=== PATIENT | male | born 1945 | race Caucasian/White ===

== ENCOUNTER 2018-08-22 18:52 | Emergency (ER) | payer MEDICARE, OTHER, SELFPAY ==
[2018-08-22 18:59] VITALS: BP 109/75; PULSE 58; RESP 22; TEMP 37.4; O2SAT 100
--- NOTE | 2018-08-22 19:05 | DI.RAD.S_ITS ---
PROCEDURE: XR CHEST 2V INDICATIONS: dry cough, short of breath TECHNIQUE: 2 views of the chest were acquired. COMPARISON: None. FINDINGS: Surgical changes and devices: None. Lungs and pleura: Lungs are clear. No pleural effusions or pneumothorax. Mediastinum: Mediastinal contours are normal. Heart size is normal. Bones and chest wall: No suspicious bony abnormalities. Soft tissues appear unremarkable. IMPRESSION: No acute cardiopulmonary disease process. Dictated by: Annalee Henry MD, PhD on 08/22/2018 at 19:24 Approved by: Annalee Henry MD, PhD on 08/22/2018 at 19:25
[2018-08-22 19:33] LABS: Influenza A and B by PCR Rapid Negative (Negative)
[2018-08-22 20:30] VITALS: TEMP 37.1
--- NOTE | 2018-08-22 20:36 | ED.URI ---
HPI - URI/Sore Throat General Chief Complaint: Upper Respiratory Symptoms Stated Complaint: SOB,Chills Time Seen by Provider: 08/22/18 20:36 Source: patient Mode of arrival: ambulatory Limitations: no limitations History of Present Illness HPI Narrative: The patient has been ill for 1 day. He describes headache. He is feels warm. He has a cough and sore throat. he feels fatigued. He is a bit dizzy. He is having no chest pain. he is not coughing up phlegm. He has no respiratory illness. He is a nonsmoker. He returned [place] flight about 1 week ago. He has been exposed to a person with pneumonia about a week ago. He is not vomiting. He has lost his appetite. He is taking in plenty of fluids. Related Data Home Medications Medication Instructions Recorded Confirmed magnesium 500 mg PO DAILY 08/22/18 08/22/18 Allergies Allergy/AdvReac Type Severity Reaction Status Date / Time No Known Drug Allergies Allergy Verified 08/22/18 19:04 Review of Systems Review of Systems ROS Unobtainable: All systems reviewed & are unremarkable except as noted in HPI and below Constitutional Reports body ache(s), Reports chills, Reports fever(s) and Denies frequent falls Eyes Denies eye discharge and Reports irritation ENT Ears, Nose, Mouth, and Throat: Denies change in voice, Denies dizziness, Denies neck pain and Reports sore throat Cardiovascular Denies chest pain, Denies irregular heart rhythm, Denies lightheadedness, Denies palpitations, Denies dyspnea and Denies orthopnea Respiratory Reports cough (Nonproductive), Denies dyspnea and Denies wheezing Gastrointestinal Gastrointestinal: Denies abdominal pain, Denies change in bowel habits, Denies diarrhea, Denies nausea and Denies vomiting Comments: Decreased appetite. Genitourinary Comments: No urinary complaints. Musculoskeletal Denies back pain, Denies neck pain and Denies numbness Integumentary/Breasts Denies rash Neurologic Denies behavioral changes, Denies confusion, Denies dizziness, Denies frequent falls and Denies numbness Psychiatric Denies behavioral changes and Denies confusion Endocrine Denies palpitations Allergic/Immunologic Denies wheezing [facility] Medical History Atrial fibrillation (Acute) IBS (irritable bowel syndrome) (Acute) Surgical History (Updated 08/22/18 @ 20:50 by Cristopher Barrera MD) No pertinent past surgical history (Acute) Social History Smoking Status: Never smoker Social History Smoking Status: Never smoker Exam Initial Vital Signs Initial Vital Signs: Vital Signs Temperature 99.3 F 08/22/18 18:59 Pulse Rate 58 L 08/22/18 18:59 Respiratory Rate 22 08/22/18 18:59 Blood Pressure 109/75 08/22/18 18:59 Pulse Oximetry 100 08/22/18 18:59 Const General: cooperative, healthy appearing and well developed Nutritional Appearance: well nourished Orientation: alert, awake, oriented x3 and not confused HENMT Head: normocephalic and atraumatic Ears: external ears normal and TM's normal bilaterally Nose: external nose normal and No nasal discharge Face and sinus: sinuses nontender and face symmetric Mouth: oral mucosae normal and moist mucous membranes Teeth and gingiva: dentition normal Throat: tonsils normal and other (Slight or pharyngeal erythema) Eyes General: appearance normal, both eyes and all related structures Eyelids: eyelids normal Conjunctivae: conjunctivae normal Sclera: sclerae normal Pupils: PERRL EOM: EOM intact bilaterally Neck Neck: full ROM, supple, No lymphadenopathy and other (No meningeal signs) Chest Chest: normal inspection of the chest Resp Effort & Inspection: normal respiratory effort, able to speak in complete sentences, no respiratory distress and no use of accessory muscles Auscultation: clear to auscultation bilaterally, no rales, no rhonchi and no wheezes Cardio Rate: bradycardic Rhythm: regular rhythm Heart Sounds: S1 normal, S2 normal, no click, no gallops, no murmurs and no rubs GI Inspection: non-distended Palpation: soft, no hepatosplenomegaly and No tender Auscultation: normal bowel sounds Skin General: no rashes or lesions noted Neuro General: alert, oriented x3, gait normal and no focal motor deficits Speech: speech normal Extrem General: full ROM, no clubbing, cyanosis or edema, no pedal edema and no calf tenderness Course Course Narrative: Orthostatic vital evaluation revealed a mild blood pressure drop, but symptomatic with dizziness. He was hydrated with 1 L of IV fluids, he is feeling significantly better. Orders Ordered: ED Orders 08/22/18 19:05 XR chest 2V Stat 08/22/18 19:15 Influenza A and B by PCR Rapid Stat 08/22/18 20:20 EKG-12 Lead Stat 08/22/18 20:50 Complete Blood Count AUTO DIFF Stat Comprehensive Metabolic Panel Stat Discontinued Medications Sodium Chloride (Normal Saline 0.9%) 1,000 mls @ 1,000 mls/hr IV BOLUS ONE Stop: 08/22/18 21:54 Last Infusion: 08/22/18 22:15 Dose: 0 mls/hr Admin: 08/22/18 21:00 Dose: 1,000 mls/hr Vital Signs - 8 hr 08/22/18 18:59 08/22/18 20:30 08/22/18 20:55 Temperature 99.3 F 98.7 F Pulse Rate 58 L Pulse Rate [Orthostatic Lying] 57 L Pulse Rate [Orthostatic Sitting] 63 Pulse Rate [Orthostatic Standing] 57 L Respiratory Rate 22 Blood Pressure 109/75 Blood Pressure [Left Arm] Blood Pressure [Orthostatic Lying] 111/63 Blood Pressure [Orthostatic Sitting] 103/63 Blood Pressure [Orthostatic Standing] 95/50 L Pulse Oximetry 100 08/22/18 21:04 08/22/18 22:00 Temperature 99.0 F Pulse Rate 57 L 56 L Pulse Rate [Orthostatic Lying] Pulse Rate [Orthostatic Sitting] Pulse Rate [Orthostatic Standing] Respiratory Rate 20 Blood Pressure Blood Pressure [Left Arm] 114/69 123/55 L Blood Pressure [Orthostatic Lying] Blood Pressure [Orthostatic Sitting] Blood Pressure [Orthostatic Standing] Pulse Oximetry 98 99 MDM - URI/Sore Throat Lab Data Result diagrams: 08/22/18 20:50 08/22/18 20:50 Lab Results 08/22/18 08/22/18 08/22/18 Range/Units 19:15 20:50 20:50 WBC 7.2 (4.5-11.0) X10^3/uL RBC 4.93 (4.5-5.9) X10^6/uL Hgb 15.6 (13.5-17.5) g/dL Hct 45.1 (41-53) % MCV 91.4 (80-100) fL MCH 31.6 (26-34) PG MCHC 34.6 (30-36) % RDW 13.1 (11.6-14.8) % Plt Count 119 L (150-400) X10^3/uL Neut % (Auto) 87.0 H (50-75) % Lymph % (Auto) 4.9 L (25-40) % Stanley % (Auto) 5.5 (3-14) % Eos % (Auto) 0.1 L (2-4) % Baso % (Auto) 2.5 H (0-2) % Neut # (Auto) 6300 (5741-3983) /uL Lymph # (Auto) 400 L (2168-7218) /uL Stanley # (Auto) 400 (0-900) /uL Eos # (Auto) 0 (0-450) /uL Baso # (Auto) 200 H (0-100) /uL Sodium 138 (137-145) mmol/L Potassium 3.9 (3.4-5.1) mmol/L Chloride 107 (98-107) mmol/L Carbon Dioxide 23 (22-32) mmol/L BUN 21 H (9-20) mg/dL Creatinine 0.90 (0.66-1.25) mg/dL Estimated GFR > 60.0 (>60) mL/min BUN/Creatinine Ratio 23.3 H (6-22) Glucose 105 (80-110) mg/dL Calcium 9.3 (8.4-10.2) mg/dL Total Bilirubin 0.9 (0.2-1.3) mg/dL AST 27 (17-59) IU/L ALT 35 (21-72) IU/L Alkaline Phosphatase 72 (38-126) U/L Total Protein 6.7 (6.3-8.2) g/dL Albumin 4.1 (3.5-5.0) g/dL Globulin 2.6 (1.7-4.1) g/dL Albumin/Globulin Ratio 1.6 (1.0-2.8) Influenza A & B (PCR) Negative (Negative) Imaging Data Chest x-ray: Radiologist's impression: [address] [address] XRay Report Signed Patient: Alcon Gibbs HMR#: [id number] : 1946Acct:[id number] Age/Sex: 72 / MDate of Service: 08/22/18 Loc: ED Accession Number: [id number] Procedure: XR chest 2V Ordering Provider: Cristopher Barrera M.D. PROCEDURE: XR CHEST 2V INDICATIONS: dry cough, short of breath TECHNIQUE: 2 views of the chest were acquired. COMPARISON: None. FINDINGS: Surgical changes and devices: None. Lungs and pleura: Lungs are clear. No pleural effusions or pneumothorax. Mediastinum: Mediastinal contours are normal. Heart size is normal. Bones and chest wall: No suspicious bony abnormalities. Soft tissues appear unremarkable. IMPRESSION: No acute cardiopulmonary disease process. Dictated by: Annalee Henry MD, PhD on 08/22/2018 at 19:24 Approved by: Annalee Henry MD, PhD on 08/22/2018 at 19:25 ECG Data Attestation: I personally reviewed and interpreted this ECG as follows: (Sinus bradycardia rate 52 beats per minute. nonspecific ST T wave changes. No ectopy. Normal intervals. No arrhythmia.) Discharge Plan Departure Patient Disposition: Home Clinical Impression: Upper respiratory infection, viral Instructions: DI for Viral Upper Respiratory Infection -- Adult Activity Restrictions/Additional Instructions: Tylenol 2 tablets every 4 hours as needed for pain or fever. Be sure you are drinking plenty of fluids and stay well hydrated. Follow-up with her doctor within 3 days if not improving. Return to the ER if obviously worse. Prescriptions: No Action magnesium 250 mg Tablet 500 mg PO DAILY RF: 0 Referrals: Andrés Douglass MD [Primary Care Provider] -
[2018-08-22 20:55] VITALS: BP 103/63; BP 111/63; BP 95/50; PULSE 57; PULSE 63
--- NOTE | 2018-08-22 20:55 | ED_ITS ---
HPI - URI/Sore Throat General Chief Complaint: Upper Respiratory Symptoms Stated Complaint: SOB,Chills Time Seen by Provider: 08/22/18 20:36 Source: patient Mode of arrival: ambulatory Limitations: no limitations History of Present Illness HPI Narrative: The patient has been ill for 1 day. He describes headache. He is feels warm. He has a cough and sore throat. he feels fatigued. He is a bit dizzy. He is having no chest pain. he is not coughing up phlegm. He has no respiratory illness. He is a nonsmoker. He returned from a [place] flight about 1 week ago. He has been exposed to a person with pneumonia about a week ago. He is not vomiting. He has lost his appetite. He is taking in plenty of fluids. Related Data Home Medications Medication Instructions Recorded Confirmed magnesium 500 mg PO DAILY 08/22/18 08/22/18 Allergies Allergy/AdvReac Type Severity Reaction Status Date / Time No Known Drug Allergies Allergy Verified 08/22/18 19:04 Review of Systems Review of Systems ROS Unobtainable: All systems reviewed & are unremarkable except as noted in HPI and below Constitutional Reports body ache(s), Reports chills, Reports fever(s) and Denies frequent falls Eyes Denies eye discharge and Reports irritation ENT Ears, Nose, Mouth, and Throat: Denies change in voice, Denies dizziness, Denies neck pain and Reports sore throat Cardiovascular Denies chest pain, Denies irregular heart rhythm, Denies lightheadedness, Denies palpitations, Denies dyspnea and Denies orthopnea Respiratory Reports cough (Nonproductive), Denies dyspnea and Denies wheezing Gastrointestinal Gastrointestinal: Denies abdominal pain, Denies change in bowel habits, Denies diarrhea, Denies nausea and Denies vomiting Comments: Decreased appetite. Genitourinary Comments: No urinary complaints. Musculoskeletal Denies back pain, Denies neck pain and Denies numbness Integumentary/Breasts Denies rash Neurologic Denies behavioral changes, Denies confusion, Denies dizziness, Denies frequent falls and Denies numbness Psychiatric Denies behavioral changes and Denies confusion Endocrine Denies palpitations Allergic/Immunologic Denies wheezing [facility] Medical History Atrial fibrillation (Acute) IBS (irritable bowel syndrome) (Acute) Surgical History (Updated 08/22/18 @ 20:50 by Cristopher Barrera MD) No pertinent past surgical history (Acute) Social History Smoking Status: Never smoker Social History Smoking Status: Never smoker Exam Initial Vital Signs Initial Vital Signs: Vital Signs Temperature 99.3 F 08/22/18 18:59 Pulse Rate 58 L 08/22/18 18:59 Respiratory Rate 22 08/22/18 18:59 Blood Pressure 109/75 08/22/18 18:59 Pulse Oximetry 100 08/22/18 18:59 Const General: cooperative, healthy appearing and well developed Nutritional Appearance: well nourished Orientation: alert, awake, oriented x3 and not confused HENMT Head: normocephalic and atraumatic Ears: external ears normal and TM's normal bilaterally Nose: external nose normal and No nasal discharge Face and sinus: sinuses nontender and face symmetric Mouth: oral mucosae normal and moist mucous membranes Teeth and gingiva: dentition normal Throat: tonsils normal and other (Slight or pharyngeal erythema) Eyes General: appearance normal, both eyes and all related structures Eyelids: eyelids normal Conjunctivae: conjunctivae normal Sclera: sclerae normal Pupils: PERRL EOM: EOM intact bilaterally Neck Neck: full ROM, supple, No lymphadenopathy and other (No meningeal signs) Chest Chest: normal inspection of the chest Resp Effort & Inspection: normal respiratory effort, able to speak in complete sentences, no respiratory distress and no use of accessory muscles Auscultation: clear to auscultation bilaterally, no rales, no rhonchi and no wheezes Cardio Rate: bradycardic Rhythm: regular rhythm Heart Sounds: S1 normal, S2 normal, no click, no gallops, no murmurs and no rubs GI Inspection: non-distended Palpation: soft, no hepatosplenomegaly and No tender Auscultation: normal bowel sounds Skin General: no rashes or lesions noted Neuro General: alert, oriented x3, gait normal and no focal motor deficits Speech: speech normal Extrem General: full ROM, no clubbing, cyanosis or edema, no pedal edema and no calf tenderness Course Course Narrative: Orthostatic vital evaluation revealed a mild blood pressure drop, but symptomatic with dizziness. He was hydrated with 1 L of IV fluids, he is feeling significantly better. Orders Ordered: ED Orders 08/22/18 19:05 XR chest 2V Stat 08/22/18 19:15 Influenza A and B by PCR Rapid Stat 08/22/18 20:20 EKG-12 Lead Stat 08/22/18 20:50 Complete Blood Count AUTO DIFF Stat Comprehensive Metabolic Panel Stat Discontinued Medications Sodium Chloride (Normal Saline 0.9%) 1,000 mls @ 1,000 mls/hr IV BOLUS ONE Stop: 08/22/18 21:54 Last Infusion: 08/22/18 22:15 Dose: 0 mls/hr Admin: 08/22/18 21:00 Dose: 1,000 mls/hr Vital Signs - 8 hr 08/22/18 18:59 08/22/18 20:30 08/22/18 20:55 Temperature 99.3 F 98.7 F Pulse Rate 58 L Pulse Rate [Orthostatic Lying] 57 L Pulse Rate [Orthostatic Sitting] 63 Pulse Rate [Orthostatic Standing] 57 L Respiratory Rate 22 Blood Pressure 109/75 Blood Pressure [Left Arm] Blood Pressure [Orthostatic Lying] 111/63 Blood Pressure [Orthostatic Sitting] 103/63 Blood Pressure [Orthostatic Standing] 95/50 L Pulse Oximetry 100 08/22/18 21:04 08/22/18 22:00 Temperature 99.0 F Pulse Rate 57 L 56 L Pulse Rate [Orthostatic Lying] Pulse Rate [Orthostatic Sitting] Pulse Rate [Orthostatic Standing] Respiratory Rate 20 Blood Pressure Blood Pressure [Left Arm] 114/69 123/55 L Blood Pressure [Orthostatic Lying] Blood Pressure [Orthostatic Sitting] Blood Pressure [Orthostatic Standing] Pulse Oximetry 98 99 MDM - URI/Sore Throat Lab Data Result diagrams: 08/22/18 20:50 08/22/18 20:50 Lab Results 08/22/18 08/22/18 08/22/18 Range/Units 19:15 20:50 20:50 WBC 7.2 (4.5-11.0) X10^3/uL RBC 4.93 (4.5-5.9) X10^6/uL Hgb 15.6 (13.5-17.5) g/dL Hct 45.1 (41-53) % MCV 91.4 (80-100) fL MCH 31.6 (26-34) PG MCHC 34.6 (30-36) % RDW 13.1 (11.6-14.8) % Plt Count 119 L (150-400) X10^3/uL Neut % (Auto) 87.0 H (50-75) % Lymph % (Auto) 4.9 L (25-40) % Cand[place] % (Auto) 5.5 (3-14) % Eos % (Auto) 0.1 L (2-4) % Baso % (Auto) 2.5 H (0-2) % Neut # (Auto) 6300 (3159-1448) /uL Lymph # (Auto) 400 L (1864-8626) /uL [place] # (Auto) 400 (0-900) /uL Eos # (Auto) 0 (0-450) /uL Baso # (Auto) 200 H (0-100) /uL Sodium 138 (137-145) mmol/L Potassium 3.9 (3.4-5.1) mmol/L Chloride 107 (98-107) mmol/L Carbon Dioxide 23 (22-32) mmol/L BUN 21 H (9-20) mg/dL Creatinine 0.90 (0.66-1.25) mg/dL Estimated GFR > 60.0 (>60) mL/min BUN/Creatinine Ratio 23.3 H (6-22) Glucose 105 (80-110) mg/dL Calcium 9.3 (8.4-10.2) mg/dL Total Bilirubin 0.9 (0.2-1.3) mg/dL AST 27 (17-59) IU/L ALT 35 (21-72) IU/L Alkaline Phosphatase 72 (38-126) U/L Total Protein 6.7 (6.3-8.2) g/dL Albumin 4.1 (3.5-5.0) g/dL Globulin 2.6 (1.7-4.1) g/dL Albumin/Globulin Ratio 1.6 (1.0-2.8) Influenza A & B (PCR) Negative (Negative) Imaging Data Chest x-ray: Radiologist's impression: [address] [address] XRay Report Signed Patient: Alcon Gibbs HMR#: [id number] : 1946Acct:[id number] Age/Sex: 72 / MDate of Service: 08/22/18 Loc: ED Accession Number: [id number] Procedure: XR chest 2V Ordering Provider: Cristopher Barrera M.D. PROCEDURE: XR CHEST 2V INDICATIONS: dry cough, short of breath TECHNIQUE: 2 views of the chest were acquired. COMPARISON: None. FINDINGS: Surgical changes and devices: None. Lungs and pleura: Lungs are clear. No pleural effusions or pneumothorax. Mediastinum: Mediastinal contours are normal. Heart size is normal. Bones and chest wall: No suspicious bony abnormalities. Soft tissues appear unremarkable. IMPRESSION: No acute cardiopulmonary disease process. Dictated by: Annalee Henry MD, PhD on 08/22/2018 at 19:24 Approved by: Annalee Henry MD, PhD on 08/22/2018 at 19:25 ECG Data Attestation: I personally reviewed and interpreted this ECG as follows: (Sinus bradycardia rate 52 beats per minute. nonspecific ST T wave changes. No ectopy. Normal intervals. No arrhythmia.) Discharge Plan Departure Patient Disposition: Home Clinical Impression: Upper respiratory infection, viral Instructions: DI for Viral Upper Respiratory Infection -- Adult Activity Restrictions/Additional Instructions: Tylenol 2 tablets every 4 hours as needed for pain or fever. Be sure you are drinking plenty of fluids and stay well hydrated. Follow-up with her doctor within 3 days if not improving. Return to the ER if obviously worse. Prescriptions: No Action magnesium 250 mg Tablet 500 mg PO DAILY RF: 0 Referrals: Andrés Douglass MD [Primary Care Provider] -
[2018-08-22] MEDS: SODIUM CHLORIDE 0.9% 1,000 ML 1000 ML IV (21:00)
[2018-08-22 21:04] VITALS: BP 114/69; PULSE 57; O2SAT 98
[2018-08-22 22:00] VITALS: BP 123/55; PULSE 56; RESP 20; TEMP 37.2; O2SAT 99
[2018-08-22 22:28] LABS: Add Manual Diff / Slide Review NO; Basophils Absolute Auto 200 /uL (0-100); Basophils Percent Auto 2.5 % (0-2); Eosinophils Absolute Auto 0 /uL (0-450); Eosinophils Percent Auto 0.1 % (2-4); Hematocrit 45.1 % (41-53); Hemoglobin 15.6 g/dL (13.5-17.5); Lymphocytes Absolute Auto 400 /uL (1100-4500); Lymphocytes Percent Auto 4.9 % (25-40); Mean Corpuscular HGB Conc 34.6 % (30-36); Mean Corpuscular Hemoglobin 31.6 PG (26-34); Mean Corpuscular Volume 91.4 fL (80-100); Monocytes Absolute Auto 400 /uL (0-900); Monocytes Percent Auto 5.5 % (3-14); Neutrophils Absolute Auto 6300 /uL (1500-7000); Platelet Count 119 X10^3/uL (150-400); Red Blood Cell Count 4.93 X10^6/uL (4.5-5.9); Red Cell Distribution Width 13.1 % (11.6-14.8); White Blood Cell Count 7.2 X10^3/uL (4.5-11.0)
--- NOTE | 2018-08-22 22:30 | PC.NURSE ---
patient requested to take tylenol medication from home. provider okayed.
[2018-08-22 22:32] LABS: Alanine Aminotransferase 35 IU/L (21-72); Albumin 4.1 g/dL (3.5-5.0); Albumin Globulin Ratio 1.6 (1.0-2.8); Alkaline Phosphatase 72 U/L (38-126); Aspartate Aminotransferase 27 IU/L (17-59); BUN Creatinine Ratio 23.3 (6-22); Bilirubin Total 0.9 mg/dL (0.2-1.3); Blood Urea Nitrogen 21 mg/dL (9-20); Calcium 9.3 mg/dL (8.4-10.2); Carbon Dioxide 23 mmol/L (22-32); Chloride 107 mmol/L (98-107); Estimated Glomerular Filt Rate > 60.0 mL/min (>60); Globulin 2.6 g/dL (1.7-4.1); Glucose 105 mg/dL (80-110); HEMOLYSIS 16 (0-50); Potassium 3.9 mmol/L (3.4-5.1); Sodium 138 mmol/L (137-145); Total Protein 6.7 g/dL (6.3-8.2)
[2018-08-22 22:49] VITALS: TEMP 37.6
== END 2018-08-22 22:49 | disposition home or self-care (01) ==
PROVIDERS: Emergency Provider Emergency Medicine; Family Provider Family Medicine; PCP Family Medicine
DX: J06.9 Acute upper respiratory infection, unspecified (principal); R06.02 Shortness of breath; R50.9 Fever, unspecified; R42 Dizziness and giddiness; R53.83 Other fatigue
CPT/HCPCS: 36591; 71046; 80053; 85025; 87400; 93005; 93010; 96360; 99283; 99285

== ENCOUNTER → 2024-03-13 11:12 | Outpatient (CLI) | payer MEDICARE, OTHER, SELFPAY ==
--- NOTE | 2024-03-13 11:15 | DI.US.S_ITS ---
PROCEDURE: US ABD AORTA ANEURYSM SCREEN INDICATIONS: ANEURYSM OF ILIAC ARTERY TECHNIQUE: Real time scanning was performed of the aorta and iliac arteries, with image documentation. COMPARISON: [facility], RG, CT KUB, 01/09/2022, 15:03. FINDINGS: Aorta: Proximal aortic diameter measures 1.8 cm. Mid-aorta measures 1.9 cm. Distal aortic diameter is 1.7 cm. Iliac arteries: There is a right common iliac artery aneurysm seen measuring 2.4 cm AP, previously measuring 2.9 cm AP. Left common iliac artery measures 1.3 cm. IMPRESSION: Negative for abdominal aortic aneurysm. 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 Dictated by: Eddie Griffin M.D. on 03/13/2024 at 10:49 Approved by: Eddie Griffin M.D. on 03/13/2024 at 10:50
== END ==
LOC: US 11:13
PROVIDERS: Family Provider Family Medicine; PCP Family Medicine; Referring Provider Family Medicine; Visit Provider Family Medicine
DX: Z13.6 Encounter for screening for cardiovascular disorders (principal); I72.3 Aneurysm of iliac artery
CPT/HCPCS: 76706